=== PATIENT | female | born 1950 | race Two or more races ===

== ENCOUNTER 2019-05-03 07:49 | Inpatient (IN) | payer MEDICARE, MEDICAID ==
[~2019-05-03] VITALS: Ht 147.3 cm; Wt 59.4 kg
[2019-05-03] MEDS ORDERED: VISCOUS LIDOCAINE 2% 15 ML UDC PO STA (08:26)
[2019-05-03] MEDS ORDERED: MAGNESIUM/ALUMINUM HYDROXIDE/SIMETHICONE 30ML UDC PO STA (08:26)
[2019-05-03] MEDS ORDERED: DICYCLOMINE 10 MG/5 ML ORAL SYR PO STA (08:26)
[2019-05-03] MEDS ORDERED: SODIUM CHLORIDE 0.9% 1,000 ML IV ONE (08:26)
[2019-05-03 09:24] LABS: BASOPHILS % 0.5 % (0.0-2.0); EOSINOPHILS % 0.7 % (0.0-5.0); HEMOGLOBIN. 13.9 g/dL (12.0-16.0); LYMPHOCYTES % 23.1 % (20.0-50.0); MEAN CORPUSCULAR HEMOGLOBIN 21.5 pg (28.0-32.0); MEAN CORPUSCULAR VOLUME 66.5 fL (81.0-99.0); MEAN PLATELET VOLUME 8.8 fl (7.4-10.4); MONOCYTES % 5.7 % (2.0-8.0); PLATELET 239 x1000/uL (130-400); RED BLOOD CELL COUNT 6.46 mill/uL (4.2-5.4); RED CELL DISTRIBUTION WIDTH 15.2 % (11.6-14.6)
[2019-05-03 09:54] LABS: PLATELET ESTIMATE NORMAL
[2019-05-03 10:21] LABS: CHLORIDE 101 mEq/L (98-107)
[2019-05-03 11:26] LABS: CLARITY URINE CLEAR (CLEAR); COLOR URINE YELLOW (YELLOW); KETONES URINE NEGATIVE (NEGATIVE); LEUKOCYTE ESTERASE URINE NEGATIVE (NEGATIVE); NITRITE URINE NEGATIVE (NEGATIVE); OCCULT BLOOD URINE NEGATIVE (NEGATIVE); PH URINE >=9.0 (4.5-8.0); PROTEIN URINE NEGATIVE (NEGATIVE); SPECIFIC GRAVITY URINE 1.008 (1.005-1.030); UROBILINOGEN URINE 0.2 E.U./dL (0.2-1.0)
[2019-05-03] MEDS ORDERED: ONDANSETRON HCL 4MG/2ML INJ IV PRN (13:00)
[2019-05-03] MEDS ORDERED: ACETAMINOPHEN 325MG TABLET PO PRN (13:00)
[2019-05-03] MEDS ORDERED: CLONIDINE 0.1MG TABLET PO PRN (13:45)
[2019-05-03] MEDS ORDERED: AMLODIPINE 5MG TABLET PO SCH (14:43)
[2019-05-03] MEDS ORDERED: HYDR25TA PO (17:44)
[2019-05-03] MEDS ORDERED: ASPI-1393 PO (17:44)
[2019-05-03] MEDS ORDERED: ATOR20TA65 PO (17:44)
[2019-05-03] MEDS ORDERED: PANT40TA4 PO (17:44)
[2019-05-03 18:21] VITALS: BP 148/83
[2019-05-03 18:51] LABS: *AMPHETAMINES SCREEN URINE NEGATIVE (NEGATIVE); *BARBITURATES SCREEN URINE NEGATIVE (NEGATIVE); *BENZODIAZEPINES SCREEN URINE NEGATIVE (NEGATIVE); *COCAINE SCREEN URINE NEGATIVE (NEGATIVE); METHADONE URINE SCREEN NEGATIVE (NEGATIVE)
[2019-05-03 18:52] LABS: CANNABINOID URINE SCREEN NEGATIVE (NEGATIVE); OPIATES URINE SCREEN NEGATIVE (NEGATIVE); PHENCYCLIDINE URINE SCREEN NEGATIVE (NEGATIVE)
[2019-05-03 20:00] VITALS: BP 145/78
[2019-05-03] MEDS ORDERED: ATORVASTATIN CALCIUM 40MG TABLET PO SCH (21:00)
[2019-05-03] MEDS ORDERED: FAMOTIDINE 20MG TABLET PO SCH (21:00)
[2019-05-03] MEDS: AMLODIPINE 2.5MG TABLET PO SCH (21:31)
[2019-05-04] VITALS (8 sets, daily range): BP systolic 126–156; BP diastolic 66–90
[2019-05-04 06:19] LABS: BASOPHILS % 0.7 % (0.0-2.0); EOSINOPHILS % 4.6 % (0.0-5.0); HEMATOCRIT. 39.3 % (36.0-48.0); HEMOGLOBIN. 12.5 g/dL (12.0-16.0); LYMPHOCYTES % 45.1 % (20.0-50.0); MEAN CORPUSCULAR HEMOGLOBIN 21.6 pg (28.0-32.0); MEAN CORPUSCULAR VOLUME 67.8 fL (81.0-99.0); MEAN PLATELET VOLUME 8.2 fl (7.4-10.4); MONOCYTES % 9.4 % (2.0-8.0); NEUTROPHILS % 40.2 % (40.0-76.0); PLATELET 223 x1000/uL (130-400); RED BLOOD CELL COUNT 5.79 mill/uL (4.2-5.4); RED CELL DISTRIBUTION WIDTH 14.9 % (11.6-14.6)
[2019-05-04 06:30] LABS: CHLORIDE 105 mEq/L (98-107)
[2019-05-04] MEDS: AMLODIPINE 2.5MG TABLET PO SCH ×2 (07:26→14:16)
[2019-05-04] MEDS ORDERED: LIP40 PO (17:25)
[2019-05-04] MEDS ORDERED: AMLO5TAB88 MT (17:25)
[2019-05-04] MEDS ORDERED: FAMO20TA8 PO (17:25)
== END 2019-05-04 18:35 | disposition home or self-care (01) | DRG 74 ==
LOC: ER 07:49 → ENRESERV 16:34 → 5WST 17:13
PROVIDERS: ADMIT Internal Medicine; ATTEND Internal Medicine
DX: G90.8 Other disorders of autonomic nervous system (principal); E87.1 Hypo-osmolality and hyponatremia; K21.9 Gastro-esophageal reflux disease without esophagitis; E78.00 Pure hypercholesterolemia, unspecified; E78.5 Hyperlipidemia, unspecified; G89.29 Other chronic pain; I10 Essential (primary) hypertension; E86.0 Dehydration; Z88.0 Allergy status to penicillin; Z79.82 Long term (current) use of aspirin; Z79.899 Other long term (current) drug therapy
CPT/HCPCS: 36415; 71045; 80048; 80053; 80061; 80305; 81003; 84443; 84484; 85025; 85379; 93005; 93306; 93880; 93970; 96374; 97162; 99285; J2405; J7030

== ENCOUNTER 2021-03-06 20:10 | Emergency (ER) | payer BC, MEDICAID ==
[~2021-03-06] VITALS: Ht 157.5 cm; Wt 70.0 kg
[~2021-03-06 20:10] MED LIST: AMLO5TAB88 MT; ASPI-1497 PO; FAMO20TA8 PO; LIP40 PO; PANT40TA51 PO
[2021-03-06] MEDS ORDERED: SODIUM CHLORIDE 0.9% 1,000 ML IV ONE (23:00)
[2021-03-06 23:27] LABS: BASOPHILS % 0.6 % (0.0-2.0); EOSINOPHILS % 3.2 % (0.0-5.0); HEMATOCRIT. 40.5 % (36.0-48.0); LYMPHOCYTES % 37.6 % (20.0-50.0); MEAN CORPUSCULAR HEMOGLOBIN 21.7 pg (28.0-32.0); MEAN CORPUSCULAR VOLUME 67.8 fL (81.0-99.0); MEAN PLATELET VOLUME 7.6 fl (7.4-10.4); MONOCYTES % 7.4 % (2.0-8.0); NEUTROPHILS % 51.2 % (40.0-76.0); PLATELET 248 x1000/uL (130-400); RED BLOOD CELL COUNT 5.97 mill/uL (4.2-5.4); RED CELL DISTRIBUTION WIDTH 15.3 % (11.6-14.6)
[2021-03-06 23:42] LABS: CHLORIDE 106 mEq/L (98-107)
[2021-03-07 00:13] VITALS: BP 145/62
[2021-03-07 02:34] LABS: PLATELET ESTIMATE NORMAL
== END 2021-03-06 22:25 | disposition home or self-care (01) ==
LOC: ER 20:10
DX: U07.1 COVID-19 (principal); I10 Essential (primary) hypertension
CPT/HCPCS: 36415; 71045; 80053; 85025; 93005; 96360; 99285; C9803; J7030; U0003; U0005

== ENCOUNTER 2021-08-05 17:40 | Emergency (ER) | payer BC, MEDICAID ==
[~2021-08-05] VITALS: Ht 157.5 cm; Wt 68.0 kg
[2021-08-05] MEDS ORDERED: ACETAMINOPHEN 325MG TABLET PO ONE (19:00)
[2021-08-05] MEDS ORDERED: AZITHROMYCIN 500 MG TABLET PO ONE (19:00)
[2021-08-05] MEDS ORDERED: IBUPROFEN 400MG TABLET PO ONE (19:00)
[2021-08-05] MEDS ORDERED: TOPUD PO (19:02)
[2021-08-05] MEDS ORDERED: AZIT250T12 MT (19:02)
[2021-08-05] MEDS ORDERED: CARB15DR63 EACH EAR (19:02)
[2021-08-05] MEDS ORDERED: IBUP-2028 MT (19:02)
[2021-08-05 19:43] VITALS: BP 132/52
== END 2021-08-05 19:59 | disposition home or self-care (01) ==
LOC: ER 17:40
DX: H66.92 Otitis media, unspecified, left ear (principal); I10 Essential (primary) hypertension; Z88.0 Allergy status to penicillin; Z79.899 Other long term (current) drug therapy
CPT/HCPCS: 99284

== ENCOUNTER 2024-12-24 12:53 | Emergency (ER) | payer MEDICAID, MEDICARE ==
[~2024-12-24] VITALS: Ht 149.9 cm; Wt 66.0 kg
[~2024-12-24 12:53] MED LIST changes: +CALC-1139 PO; -FAMO20TA8 PO; +FERR325T6 MT; +HYDR-3992 PO; +METO25TA6 PO
[2024-12-24 12:56] VITALS: O2SAT 98
[2024-12-24 13:20] LABS: BASOPHILS % 0.9 % (0.0-2.0); EOSINOPHILS % 2.9 % (0.0-5.0); HEMATOCRIT. 38.2 % (36.0-48.0); HEMOGLOBIN. 12.1 g/dL (12.0-16.0); LYMPHOCYTES % 35.8 % (20.0-50.0); MEAN PLATELET VOLUME 7.7 fl (7.4-10.4); MONOCYTES % 8.2 % (2.0-8.0); NEUTROPHILS % 52.2 % (40.0-76.0); PLATELET 232 x1000/uL (130-400); RED BLOOD CELL COUNT 5.60 mill/uL (4.2-5.4); RED CELL DISTRIBUTION WIDTH 16.1 % (11.6-14.6)
[2024-12-24 13:36] LABS: CREATININE 0.9 mg/dL (0.6-1.0); UREA NITROGEN BLOOD 15 mg/dL (9-23)
[2024-12-24 13:37] LABS: TROPONIN I HIGH SENSITIVITY 13 ng/L (3.0-34)
[2024-12-24 13:39] LABS: ADD RBC MORPHOLOGY YES
[2024-12-24 15:04] LABS: CLARITY URINE CLEAR (CLEAR); GLUCOSE URINE NEGATIVE (NEGATIVE); KETONES URINE NEGATIVE (NEGATIVE); LEUKOCYTE ESTERASE URINE 1+ (NEGATIVE); NITRITE URINE NEGATIVE (NEGATIVE); OCCULT BLOOD URINE NEGATIVE (NEGATIVE); PH URINE 6.5 (4.5-8.0); PROTEIN URINE NEGATIVE (NEGATIVE); SPECIFIC GRAVITY URINE 1.004 (1.005-1.030); UROBILINOGEN URINE 0.2 E.U./dL (0.2-1.0)
[2024-12-24 15:28] LABS: COLOR URINE STRAW (YELLOW)
[2024-12-24 15:31] LABS: BACTERIA URINE NONE SEEN; RBC URINE NONE SEEN /hpf (0-2); SQUAMOUS EPITHELIAL CELL URINE NONE SEEN /lpf (RARE/1+); WBC URINE 0-2 /hpf (0-2)
[2024-12-24 16:50] LABS: PLATELET ESTIMATE NORMAL
[2024-12-24 16:52] VITALS: BP 140/71; PULSE 70; RESP 18; TEMP 37; O2SAT 98
== END 2024-12-24 17:44 | disposition home or self-care (01) ==
LOC: ER 12:53
DX: R20.2 Paresthesia of skin (principal); F41.9 Anxiety disorder, unspecified; E78.00 Pure hypercholesterolemia, unspecified; I11.9 Hypertensive heart disease without heart failure; I67.82 Cerebral ischemia; Z79.82 Long term (current) use of aspirin; Z79.899 Other long term (current) drug therapy; Z88.0 Allergy status to penicillin
CPT/HCPCS: 36415; 71045; 80048; 81003; 83735; 84484; 85025; 93005; 99285